=== PATIENT | male | born 1995 | race African-American/Black ===

== ENCOUNTER 2023-11-14 16:31 | Emergency (ER) | payer OTHER ==
[~2023-11-14] VITALS: Ht 185.4 cm; Wt 70.0 kg
[2023-11-14 16:33] VITALS: O2SAT 100
[2023-11-14] MEDS: TETANUS, DIPHTHERIA, PERTUSSIS VAC/PF 0.5ML (>10YR OLD) IM ONE (17:14)
[2023-11-14] MEDS ORDERED: HYDROCODONE/ACETAMINOPHEN 10/325MG TABLET PO ONE (18:00)
[2023-11-14] MEDS ORDERED: MORPHINE SULFATE 4 MG/ML INJ (FOR IV/IM USE) IV NR (18:00)
[2023-11-14] MEDS ORDERED: NAPR-681 MT (18:56)
[2023-11-14 19:51] VITALS: BP 125/91; PULSE 82; RESP 16; TEMP 98.2
== END 2023-11-14 20:05 | disposition home or self-care (01) ==
LOC: ER 16:31
DX: S42.032A Displaced fracture of lateral end of left clavicle, initial encounter for closed fracture (principal); S42.192A Fracture of other part of scapula, left shoulder, initial encounter for closed fracture; S50.312A Abrasion of left elbow, initial encounter; V00.131A Fall from skateboard, initial encounter; Y93.89 Activity, other specified; Y92.89 Other specified places as the place of occurrence of the external cause; Y99.8 Other external cause status
CPT/HCPCS: 71045; 73030; 73200; 90715; 90471; 99285; Z7610; A4565